=== PATIENT | female | born 1960 | race Caucasian/White ===

== ENCOUNTER → 2016-09-23 | Outpatient (CLI) | payer BC | LOC: MC.RAD 08:40 | DX: Z12.31 Encounter for screening mammogram for malignant neoplasm of breast (principal) ==

== ENCOUNTER → 2017-10-17 | Outpatient (CLI) | payer BC | LOC: MC.RAD 11:20 | DX: Z12.31 Encounter for screening mammogram for malignant neoplasm of breast (principal) ==

== ENCOUNTER → 2018-11-20 | Outpatient (CLI) | payer BC | LOC: MC.RAD 11:45 | DX: Z12.31 Encounter for screening mammogram for malignant neoplasm of breast (principal) ==

== ENCOUNTER → 2021-08-18 | Outpatient (CLI) | payer BC | LOC: MC.RAD 14:00 | DX: Z12.31 Encounter for screening mammogram for malignant neoplasm of breast (principal) ==